=== PATIENT | female | born 1995 | race Caucasian/White ===

== ENCOUNTER 2018-09-17 22:34 | Emergency (ER) | payer SELFPAY ==
[~2018-09-17] VITALS: Ht 157.5 cm; Wt 98.9 kg
[~2018-09-17 22:34] MED LIST: CYCL10TA7 PO; HYDR-3498 PO
[2018-09-17 22:37] VITALS: Ht 157.5 cm; Wt 98.9 kg
[2018-09-18] MEDS ORDERED: IBUP-1561 PO (00:44)
--- NOTE | 2018-09-18 00:55 | ERD ---
ER Documentation Chief Complaint Chief Complaint LEFT BREAST BUMP, PAINDUL, RED X1DAY HPI This is a 23-year-old female with history of PCO S presents to the ED with complaints of a gradually worsening left breast times 1 day. Patient denies any trauma. She describes the pain as heavy and localized to the superior aspect. She states she has a history of same during her periods however today's pain is worse. She states her last mental cycle was July 14 and lasted 1 month. She states lifting the breast offers temporary relief. She is worried about cancer due to family history and is requesting ultrasound. She denies any nipple discharge, fevers, chills or any other symptoms. ROS All systems reviewed and are negative except as per history of present illness. Medications Home Meds Active Scripts Ibuprofen* (Motrin*) 400 Mg Tab, 400 MG PO Q6, #30 TAB Prov:SARAHIGRRICCI ORDOÑEZC 09/18/18 Hydrocodone Bit-Acetaminophen* (Mclean*) 5-325 Mg Tab, 1 TAB PO Q6 PRN for PAIN, #7 TAB Prov:NEO BARRIOS PA-C 09/03/15 Cyclobenzaprine Hcl* (Cyclobenzaprine Hcl*) 10 Mg Tablet, 10 MG PO TID, #15 TAB Prov:NEO BARRIOS PA-C 09/03/15 PMhx/Soc Medical and Surgical Hx: pt denies Medical Hx, pt denies Surgical Hx Hx Miscellaneous Medical Probl: Yes (pcos) Hx Alcohol Use: No Hx Substance Use: Yes (occassional) Hx Tobacco Use: No Smoking Status: Never smoker Physical Exam Vitals Vital Signs Date Temp Pulse Resp B/P (MAP) Pulse Ox O2 O2 Flow FiO2 Time Delivery Rate 09/17/18 99.3 90 17 164/93 96 22:37 (116) Physical Exam Const: No acute distress Head: Atraumatic Eyes: Normal Conjunctiva ENT: Normal External Ears, Nose and Mouth. Neck: Full range of motion. No meningismus. Chest: + Left breast at the 1 o'clock position with tenderness to palpation. No palpable nodule or mass. No nipple discharge. No skin changes. No erythema or warmth. Right breast normal. Lungs: Clear to auscultation bilaterally Cardio: Regular rate and rhythm, no murmurs Skin: No petechiae or rashes Back: No midline or flank tenderness Ext: No cyanosis, or edema Neur: Awake and alert Psych: Normal Mood and Affect Procedures/MDM LABS & DIAGNOSTIC IMAGING: PROCEDURE: Left breast ultrasound limited CLINICAL INDICATION: Left breast pain and lump TECHNIQUE: Real time sonographic imaging of the left breast is performed utilizing radial and antiradial technique and an around the clock fashion. A total of 29 images sent to the PACS for review COMPARISON: None available FINDINGS: A normal breast parenchyma pattern is present. There is no evidence of fluid collection or mass lesion. No adenopathy is seen RPTAT:HJJR IMPRESSION: Unremarkable limited ultrasound of the left breast without abscess or finding to explain the patient's provided history ACR BIRADS category 1 (negative) Recommendation: Follow-up evaluation should be based upon clinical assessment. MEDICAL DECISION MAKING: This is a 23-year-old female with history of PCOS presents with complaints of left breast pain and subjective lump. Patient is worried due to her family history of breast cancer and requested an ultrasound. Patient has no palpable n odule on physical exam. She has no evidence of mastoiditis, abscess or other serious bacterial infection. She is afebrile here and vital signs are stable. Ultrasound as above is unremarkable. Discussed these findings with patient at bedside. She was given copies of the ultrasound and told to follow-up with her ADMINISTRATIVE INTERN. I suspect her symptoms are hormonal at but likely related to ovulation. He was given Rx ibuprofen. Told to follow-up with backend developer, otherwise return here for any new or worsening symptoms. PRESCRIPTIONS: Ibuprofen SPECIALIST FOLLOW UP RECOMMENDED: Grocery Caddy Patient has been advised to follow up with primary care in 1-2 days. Departure Diagnosis: Primary Impression: Breast pain Condition: Stable Patient Instructions: Breast Self-Exam (BSE), Breast Mass, Uncertain Cause Referrals: ADMINISTRATIVE [place] [id number] [facility] [address] [place] [id number] OFFICE FAX MARCIA FOSTER [address] [place] [address] [facility] [address] [place], [place] [id number] DR [facility], [facility] [address] [address] [facility], [address] [address] DR HEDRICK, [facility] [address] [facility], [place] [address] [facility] [address] [place] [address] [facility] [id number] - DR ESPINOZA, JUDITH [address], [place] [address] DR BERRY, MIRANDA [address] [facility]. [address], [place] [address] DR DUNN, [facility] [address] [place], [place] [id number] Additional Instructions: Please follow-up with your backend developer. I am providing you a copy of your ultrasound report which is normal. He can take ibuprofen for pain. Continue with regular breast exam checks. Return for any new or worsening symptoms. RICCI HANNAH PA-C Sep 18, 2018 00:55
== END 2018-09-18 01:26 | disposition left against medical advice (07) ==
LOC: FTE 22:34
DX: N64.4 Mastodynia (principal)
CPT/HCPCS: 76642